=== PATIENT | female | born 1965 | race African-American/Black ===

== ENCOUNTER 2017-10-07 08:42 | Outpatient (CLI) | payer BC ==
--- NOTE | 2017-10-18 10:39 | MMO ---
BILATERAL DIGITAL SCREENING MAMMOGRAMS: Date: 10/07/17 This patient's mammogram was interpreted with the assistance of computer-aided detection. Comparison made with exam of 02/11/16. FINDINGS: There are scattered fibroglandular densities. No suspicious masses or calcifications are seen. No arc hitectural distortion is identified. IMPRESSION: BIRADS 1: Negative Return to annual mammographic screening. POS: SHANNA
== END 2017-10-07 08:43 | disposition home or self-care (01) ==
LOC: SCSMAMMO 08:42
PROVIDERS: ATTEND Internal Medicine
DX: Z12.31 Encounter for screening mammogram for malignant neoplasm of breast (principal)
CPT/HCPCS: 77067

== ENCOUNTER 2022-07-21 08:50 | Outpatient (CLI) | payer OTHER | END 2022-07-21 08:51 | disposition home or self-care (01) | LOC: DTY/OP 08:50 | PROVIDERS: ATTEND Family Medicine | DX: E11.9 Type 2 diabetes mellitus without complications (principal); Z71.3 Dietary counseling and surveillance | CPT/HCPCS: 97802 ==

== ENCOUNTER 2022-11-20 09:09 | Outpatient (CLI) | payer OTHER | END 2022-11-20 09:10 | disposition home or self-care (01) | LOC: MRI 09:09 | PROVIDERS: ATTEND Anesthesiology Pain Medicine | DX: M48.04 Spinal stenosis, thoracic region (principal); M47.26 Other spondylosis with radiculopathy, lumbar region; M43.8X6 Other specified deforming dorsopathies, lumbar region; M47.817 Spondylosis without myelopathy or radiculopathy, lumbosacral region; M47.814 Spondylosis without myelopathy or radiculopathy, thoracic region; M51.34 Other intervertebral disc degeneration, thoracic region; M89.38 Hypertrophy of bone, other site; Q76.49 Other congenital malformations of spine, not associated with scoliosis | CPT/HCPCS: 72120; 72146; 72148 ==

== ENCOUNTER 2022-11-23 08:58 | Outpatient (CLI) | payer OTHER | END 2022-11-23 08:59 | disposition home or self-care (01) | LOC: BICMRI 08:58 | PROVIDERS: ATTEND Anesthesiology Pain Medicine | DX: M48.02 Spinal stenosis, cervical region (principal); M47.812 Spondylosis without myelopathy or radiculopathy, cervical region; E04.2 Nontoxic multinodular goiter; M50.121 Cervical disc disorder at C4-C5 level with radiculopathy | CPT/HCPCS: 72141 ==

== ENCOUNTER 2022-12-18 12:20 | Outpatient (CLI) | payer OTHER | END 2022-12-18 12:21 | disposition home or self-care (01) | LOC: BICULT 12:20 | PROVIDERS: ATTEND Family Medicine | DX: E04.2 Nontoxic multinodular goiter (principal) | CPT/HCPCS: 76536 ==

== ENCOUNTER 2024-01-26 07:31 | Outpatient (CLI) | payer OTHER | END 2024-01-26 07:32 | disposition home or self-care (01) | LOC: ULT 07:31 | PROVIDERS: ATTEND Family Medicine | DX: E04.1 Nontoxic single thyroid nodule (principal) | CPT/HCPCS: 76536 ==